=== PATIENT | female | born 1945 | race African-American/Black ===

== ENCOUNTER 2017-02-07 12:22 | Observation (INO) | END 2017-02-07 23:55 | LOC: MED/SURG 12:22 → OBS 14:58 → MED/SURG 17:02 | PROVIDERS: ADMIT Internal Medicine; ATTEND Internal Medicine | DX: R10.84 Generalized abdominal pain (principal); R53.1 Weakness | CPT/HCPCS: G0378 ==

== ENCOUNTER 2017-02-08 09:24 | Inpatient (IN) | payer OTHER, MEDICAID ==
[2017-02-08 10:28] LABS: BASOPHILS # (AUTO) 0.1 X10^3/uL (0.0-0.1); BASOPHILS % (AUTO) 0.6 % (0.2-1.0); EOSINOPHILS # (AUTO) 0.1 x10^3/uL (0.0-0.2); HEMATOCRIT 38.1 % (36.0-47.0); HEMOGLOBIN 12.5 g/dL (12.0-16.0); LYMPHOCYTES # (AUTO) 1.4 X10^3/uL (1.3-2.9); LYMPHOCYTES % (AUTO) 12.5 % (21.0-51.0); MEAN CORPUSCULAR HEMOGLOBIN 25.9 pg (27.0-34.0); MEAN CORPUSCULAR HGB CONC 32.9 g/dL (33.0-35.0); MEAN CORPUSCULAR VOLUME 78.8 fL (80.0-100.0); MONOCYTES # (AUTO) 0.7 x10^3/uL (0.3-0.8); MONOCYTES % (AUTO) 6.2 % (0.0-13.0); NEUTROPHILS # (AUTO) 8.7 x10^3/uL (2.2-4.8); NEUTROPHILS % (AUTO) 79.7 % (42.0-75.0); PLATELET COUNT 195 X10^3/uL (150.0-450.0); RED BLOOD COUNT 4.84 X10^6/uL (3.5-5.4); RED CELL DISTRIBUTION WIDTH 18.6 % (11.6-16.5); WHITE BLOOD COUNT 10.9 X10^3/uL (3.6-10.0)
[2017-02-08 10:36] LABS: ALANINE AMINOTRANSFERASE 13 Units/L (12-78); ALBUMIN 3.7 g/dL (3.4-5.0); ALKALINE PHOSPHATASE 91 Units/L (46-116); ASPARTATE AMINO TRANSFERASE 14 Units/L (15-37); BLOOD UREA NITROGEN 23 mg/dL (7-18); CALCIUM 9.6 mg/dL (8.5-10.1); CARBON DIOXIDE 27.6 mmol/L (21-32); CHLORIDE 105 mmol/L (98-107); CREATININE 1.08 mg/dL (0.55-1.02); PLATELET MORPHOLOGY COMMENT NORMAL (NORMAL); SODIUM 141 mmol/L (136-145); eGFR BLACK RACES > 60 (>60); eGFR NON BLACK RACES 53 (>60)
--- NOTE | 2017-02-08 11:29 | RAD ---
HISTORY: Weakness Study: Left shoulder: Three views Comparison: None Findings: Mild acromioclavicular joint degeneration. Very limited movement between internal and external rotati on. [id number] glenohumeral joint degeneration noted. No fracture dislocation is noted. IMPRESSION: 1. Degenerative change in left shoulder as described above with findings suggesting the possibility o f limited range of motion. 2. No acute bony abnormalities are identified. Reported By:
--- NOTE | 2017-02-08 11:30 | RAD ---
HISTORY: Generalized weakness Study: Chest AP portable Comparison: None Findings: The heart is enlarged. No congestive heart failure is noted. The aorta is ectatic. The lungs are well inflated and free of acute alveolar infiltrates. No pleural effusions are identified. The bony thora x is unremarkable. IMPRESSION: Moderate cardiomegaly without congestive heart failure Lungs clear Reported By:
--- NOTE | 2017-02-08 11:30 | CT ---
CT abdomen and pelvis without contrast Indication: Generalized weakness, abdominal pain Comparison: None Technique: CT images of the abdomen and pelvis were obtained without contrast. Automatic exposure con trol was utilized. Findings: No acute skeletal abnormality. The lung bases are essentially clear. Evaluation of the abdominal pelvic viscera is limited by lack of contrast. Previous cholecystectomy i s noted. Within noncontrast limitations, the liver, spleen, stomach, duodenum, pancreas, adrenals, an d kidneys demonstrate no significant abnormality. No significant bowel thickening or dilatation of th e lower GI tract is observed. Normal appendix. The uterus is noted. No pelvic mass is seen. The urina ry bladder and rectum are unremarkable. No free fluid or adenopathy. There is aortoiliac atherosclero sis, without aneurysm. Impression: No etiology for patient's symptoms identified. Reported By:
[2017-02-08 12:16] VITALS: BMI 27.4
[2017-02-08] MEDS: NS 1000 ML 1,000 ML IV SCH (15:32)
[2017-02-08 15:59] LABS: AMYLASE 47 Units/L (25-115); LIPASE 215 Units/L (73-393)
[2017-02-08 19:14] LABS: BILIRUBIN,URINE NEGATIVE (NEGATIVE); BLOOD/HEMOGLOBIN,URINE 2+ (NEGATIVE); GLUCOSE, URINE NEGATIVE (NEGATIVE); KETONES,URINE NEGATIVE (NEGATIVE); LEUKOCYTE ESTERASE ,URINE 1+ (NEGATIVE); NITRITES,URINE NEGATIVE (NEGATIVE); PROTEIN,URINE NEGATIVE (NEGATIVE); UROBILINOGEN,URINE NORMAL (NORMAL)
[2017-02-08 19:21] LABS: APPEARANCE,URINE CLEAR (CLEAR); BACTERIA,URINE TRACE /HPF (NEGATIVE); COLOR,URINE YELLOW (YELLOW); RBC,URINE 0-3 /HPF (NEGATIVE); SQUAMOUS EPITHELIAL CELL,UR FEW /HPF (NEGATIVE)
[2017-02-08] MEDS ORDERED: NEURONTIN CAP 300 MG PO SCH (21:00)
[2017-02-08] MEDS ORDERED: REQUIP PO SCH (22:00)
[2017-02-09 04:32] LABS: BASOPHILS % (AUTO) 0.6 % (0.2-1.0); EOSINOPHILS # (AUTO) 0.2 x10^3/uL (0.0-0.2); EOSINOPHILS % (AUTO) 1.9 % (0.9-2.9); HEMATOCRIT 35.9 % (36.0-47.0); LYMPHOCYTES # (AUTO) 1.6 X10^3/uL (1.3-2.9); LYMPHOCYTES % (AUTO) 19.5 % (21.0-51.0); MEAN CORPUSCULAR HEMOGLOBIN 26.2 pg (27.0-34.0); MEAN CORPUSCULAR HGB CONC 33.4 g/dL (33.0-35.0); MEAN CORPUSCULAR VOLUME 78.4 fL (80.0-100.0); MEAN PLATELET VOLUME 9.3 fL (7.4-11.0); MONOCYTES # (AUTO) 0.5 x10^3/uL (0.3-0.8); MONOCYTES % (AUTO) 6.4 % (0.0-13.0); NEUTROPHILS # (AUTO) 5.8 x10^3/uL (2.2-4.8); NEUTROPHILS % (AUTO) 71.6 % (42.0-75.0); PLATELET COUNT 170 X10^3/uL (150.0-450.0); RED BLOOD COUNT 4.58 X10^6/uL (3.5-5.4); RED CELL DISTRIBUTION WIDTH 17.9 % (11.6-16.5); WHITE BLOOD COUNT 8.2 X10^3/uL (3.6-10.0)
[2017-02-09 04:37] LABS: ALANINE AMINOTRANSFERASE 11 Units/L (12-78); ALBUMIN 3.5 g/dL (3.4-5.0); ALKALINE PHOSPHATASE 80 Units/L (46-116); ASPARTATE AMINO TRANSFERASE 13 Units/L (15-37); BLOOD UREA NITROGEN 22 mg/dL (7-18); CALCIUM 9.8 mg/dL (8.5-10.1); CHLORIDE 105 mmol/L (98-107); SODIUM 140 mmol/L (136-145); TOTAL PROTEIN 7.7 g/dL (6.4-8.2); eGFR BLACK RACES > 60 (>60); eGFR NON BLACK RACES 58 (>60)
[2017-02-09] MEDS ORDERED: K-RIDER 10 MEQ/NS 100 ML 10 MEQ/100 ML BAG IV PRN (05:13)
[2017-02-09] MEDS ORDERED: MAGNESIUM SULFATE 1 GM/100 mL PREMIX 1 GM/100 ML BAG IV PRN (05:13)
[2017-02-09] MEDS ORDERED: MAG-OX TAB PO PRN (05:13)
[2017-02-09] MEDS ORDERED: K-LYTE EFFERVESCENT PO PRN (05:13)
[2017-02-09] MEDS: NS 1000 ML 1,000 ML IV SCH ×2 (05:24→14:39)
[2017-02-09] MEDS ORDERED: AMBIEN PO PRN (13:46)
[2017-02-09] MEDS: COZAAR PO SCH (14:46)
[2017-02-09] MEDS: LIORESAL PO SCH ×2 (14:46→21:17)
[2017-02-09] MEDS ORDERED: PATIENT'S HOME MEDICATION (Ropinirole Hcl [Requip] 1 TAB) PO SCH (21:00)
[2017-02-09] MEDS: NEURONTIN CAP 300 MG PO SCH (21:17)
[2017-02-09] MEDS: REQUIP PO SCH (21:17)
[2017-02-09] MEDS: ALDACTONE TAB 25 MG PO SCH (21:18)
[2017-02-10] MEDS: NS 1000 ML 1,000 ML IV SCH ×2 (05:22→18:38)
[2017-02-10] MEDS: LIORESAL PO SCH ×3 (05:44→21:17)
[2017-02-10 05:50] LABS: BASOPHILS # (AUTO) 0.1 X10^3/uL (0.0-0.1); BASOPHILS % (AUTO) 0.7 % (0.2-1.0); EOSINOPHILS # (AUTO) 0.2 x10^3/uL (0.0-0.2); EOSINOPHILS % (AUTO) 1.7 % (0.9-2.9); HEMATOCRIT 34.4 % (36.0-47.0); HEMOGLOBIN 11.4 g/dL (12.0-16.0); LYMPHOCYTES % (AUTO) 20.6 % (21.0-51.0); MEAN CORPUSCULAR HEMOGLOBIN 25.8 pg (27.0-34.0); MEAN CORPUSCULAR VOLUME 78.3 fL (80.0-100.0); MEAN PLATELET VOLUME 9.7 fL (7.4-11.0); MONOCYTES # (AUTO) 0.6 x10^3/uL (0.3-0.8); MONOCYTES % (AUTO) 6.5 % (0.0-13.0); NEUTROPHILS # (AUTO) 6.9 x10^3/uL (2.2-4.8); NEUTROPHILS % (AUTO) 70.5 % (42.0-75.0); PLATELET COUNT 171 X10^3/uL (150.0-450.0); RED CELL DISTRIBUTION WIDTH 18.3 % (11.6-16.5); WHITE BLOOD COUNT 9.9 X10^3/uL (3.6-10.0)
[2017-02-10 06:19] LABS: ALANINE AMINOTRANSFERASE 11 Units/L (12-78); ALBUMIN 3.5 g/dL (3.4-5.0); ALKALINE PHOSPHATASE 79 Units/L (46-116); ASPARTATE AMINO TRANSFERASE 16 Units/L (15-37); BLOOD UREA NITROGEN 26 mg/dL (7-18); CARBON DIOXIDE 23.5 mmol/L (21-32); CHLORIDE 107 mmol/L (98-107); CREATININE 0.94 mg/dL (0.55-1.02); SODIUM 141 mmol/L (136-145); TOTAL PROTEIN 7.4 g/dL (6.4-8.2); eGFR BLACK RACES > 60 (>60); eGFR NON BLACK RACES > 60 (>60)
[2017-02-10 06:50] LABS: PLATELET MORPHOLOGY COMMENT NORMAL (NORMAL)
[2017-02-10 06:51] LABS: ANISOCYTOSIS SLIGHT; MICROCYTOSIS SLIGHT
[2017-02-10] MEDS: ALDACTONE TAB 25 MG PO SCH ×2 (08:55→21:19)
[2017-02-10] MEDS: HYDROCHLOROTHIAZIDE 12.5 MG CAP PO SCH (08:55)
[2017-02-10] MEDS: ASPIRIN PO SCH (08:55)
[2017-02-10] MEDS: NORVASC TAB 5 MG PO SCH (08:55)
[2017-02-10] MEDS: COZAAR PO SCH (08:55)
[2017-02-10] MEDS ORDERED: PATIENT'S HOME MEDICATION (Losartan Potassium [Losartan Potassium] 1 TAB) PO SCH (09:00)
[2017-02-10] MEDS: REQUIP PO SCH (21:17)
[2017-02-10] MEDS: PERCOCET TAB 5/325 MG PO PRN (21:18)
[2017-02-10] MEDS: NEURONTIN CAP 300 MG PO SCH (21:18)
[2017-02-11 05:07] LABS: BASOPHILS # (AUTO) 0.1 X10^3/uL (0.0-0.1); BASOPHILS % (AUTO) 0.6 % (0.2-1.0); EOSINOPHILS # (AUTO) 0.1 x10^3/uL (0.0-0.2); EOSINOPHILS % (AUTO) 1.6 % (0.9-2.9); HEMATOCRIT 35.3 % (36.0-47.0); HEMOGLOBIN 11.5 g/dL (12.0-16.0); LYMPHOCYTES # (AUTO) 1.5 X10^3/uL (1.3-2.9); LYMPHOCYTES % (AUTO) 16.2 % (21.0-51.0); MEAN CORPUSCULAR HEMOGLOBIN 25.6 pg (27.0-34.0); MEAN CORPUSCULAR HGB CONC 32.6 g/dL (33.0-35.0); MEAN CORPUSCULAR VOLUME 78.6 fL (80.0-100.0); MEAN PLATELET VOLUME 9.6 fL (7.4-11.0); MONOCYTES # (AUTO) 0.6 x10^3/uL (0.3-0.8); MONOCYTES % (AUTO) 6.5 % (0.0-13.0); NEUTROPHILS # (AUTO) 6.8 x10^3/uL (2.2-4.8); NEUTROPHILS % (AUTO) 75.1 % (42.0-75.0); PLATELET COUNT 161 X10^3/uL (150.0-450.0); RED BLOOD COUNT 4.49 X10^6/uL (3.5-5.4); RED CELL DISTRIBUTION WIDTH 18.2 % (11.6-16.5); WHITE BLOOD COUNT 9.1 X10^3/uL (3.6-10.0)
[2017-02-11 05:20] LABS: ALANINE AMINOTRANSFERASE 13 Units/L (12-78); ALBUMIN 3.5 g/dL (3.4-5.0); ALKALINE PHOSPHATASE 76 Units/L (46-116); ASPARTATE AMINO TRANSFERASE 11 Units/L (15-37); BLOOD UREA NITROGEN 27 mg/dL (7-18); CALCIUM 9.8 mg/dL (8.5-10.1); CARBON DIOXIDE 23.5 mmol/L (21-32); CHLORIDE 106 mmol/L (98-107); SODIUM 141 mmol/L (136-145); TOTAL PROTEIN 7.6 g/dL (6.4-8.2); eGFR BLACK RACES > 60 (>60); eGFR NON BLACK RACES 58 (>60)
[2017-02-11] MEDS: LIORESAL PO SCH ×3 (05:53→22:00)
[2017-02-11 05:55] LABS: MICROCYTOSIS SLIGHT; PLATELET MORPHOLOGY COMMENT NORMAL (NORMAL)
[2017-02-11] MEDS: ASPIRIN PO SCH (09:06)
[2017-02-11] MEDS: COZAAR PO SCH (09:06)
[2017-02-11] MEDS: NORVASC TAB 5 MG PO SCH (09:07)
[2017-02-11] MEDS: ALDACTONE TAB 25 MG PO SCH ×2 (09:07→20:47)
[2017-02-11] MEDS: HYDROCHLOROTHIAZIDE 12.5 MG CAP PO SCH (09:07)
[2017-02-11] MEDS: NS 1000 ML 1,000 ML IV SCH (10:54)
[2017-02-11] MEDS: COLACE CAP 100 MG PO SCH ×2 (17:36→20:46)
[2017-02-11] MEDS: MILK OF MAGNESIA PO SCH ×2 (17:36→20:46)
[2017-02-11] MEDS: REQUIP PO SCH (20:46)
[2017-02-11] MEDS: NEURONTIN CAP 300 MG PO SCH (20:46)
--- NOTE | 2017-02-11 21:11 | PCM.PROG ---
Progress Note - Progress Note for Day of Date: 02/10/17 - Subjective Subjective: MS. FITZPATRICK WAS ADMITTED FOR COMPLAINTS OF ABDOMINAL PAIN AND GENERALIZED WEAKNESS. PATIENT HAS A HISTORY OF A LEFT BELOW THE KNEE AMPUTATION. FAMILY REPORTS THAT PATIENTS MOBILITY HAS GRADUALLY DECLINED AND ARE CONCERNED THAT PATIENT MAY NEED EXTENSIVE PHYSICAL THERAPY BEFORE THEY CAN TAKE HER BACK HOME TO CARE FOR HER. AN ABDOMINAL WORKUP WAS NEGATIVE FOR ACUTE FINDINGS. THIS MORNING, PATIENT IS AWAKE AND ALERT, BUT IS CONFUSED ABOUT SITUATION. SHE IS NOTED WITH LEFT LIMB PAIN. ON EXAMINATION, LUNGS ARE CLEAR TO AUSCULTATION. ABDOMEN IS ROUND, SOFT, AND NON-TENDER WITH NORMAL BOWEL SOUNDS NOTED IN ALL QUADRANTS. HER VITAL SIGNS THIS MORNING ARE 98.4-67-18-98%-186/88. ABNORMAL LAB VALUES INCLUDE THE FOLLOWING: HGB 11.4, HCT 34.4, BUN 26, A/G RATIO 0.9. URINE CULTURE REPORTS NO GROWTH AT DAY 1. PRELIMINARY BLOOD CULTURES REPORT NO GROWTH. CASE MANAGEMENT HAS CONTACTED [facility] FOR POSSIBLE REHAB PLACEMENT AFTER DISCHARGE. WE ARE AWAITING WORD ON THIS. TODAY, WE WILL CONTINUE WITH CURRENT PLAN OF CARE AND PHYSICAL THERAPY. WE PLAN TO FOLLOW UP WITH AM LABS AND CONTINUE TO MONITOR PATIENT. - Past Medical Family Social History Past Med/Fam/Surg Hx: No changes since H&P Allergies: Allergies No Known Drug Allergies Allergy (Verified 02/08/17 11:13) - Review of Systems ROS: No change since H&P - Vital Signs and I&O's Vital Signs: Temperature 98.1 F Pulse Rate [Right Brachial] 57 Respiratory Rate 18 Blood Pressure [Right Arm] 150/82 O2 Sat by Pulse Oximetry 96 Intake and Output: Intake & Output 02/09/17 02/10/17 02/11/17 02/12/17 11:59 11:59 11:59 11:59 Intake Total 580 1470 1050 580 Output Total 1000 1 Balance -420 1470 1049 580 - Physical Exam Oriented: Person Eyes: Normal Ear: Normal Nose: Normal Throat: Normal Respiratory: Normal Cardiovascular: Normal : Normal Auscultation: Bowel Sounds: Normal Palpation: Normal Tenderness: Normal Skin: Normal Musculoskeletal: Left (LEFT LIMB PAIN/TENDERNESS), Tender (LEFT LIMB PAIN/ TENDERNESS) Psychiatric: Normal Mood Description: Calm Affect: Normal Speech Pattern: Clear - Laboratory and Diagnostics Result Diagrams: 02/11/17 03:40 02/11/17 03:40 Labs: 02/08/17 13:53 Blood Blood Culture - Preliminary 02/08/17 13:42 Blood Blood Culture - Preliminary 02/08/17 18:33 Urine,Clean Catch Urine Culture - Final Laboratory WBC 9.1 X10^3/uL (3.6-10.0) 02/11/17 03:40 RBC 4.49 X10^6/uL (3.5-5.4) 02/11/17 03:40 Hgb 11.5 g/dL (12.0-16.0) L 02/11/17 03:40 Hct 35.3 % (36.0-47.0) L 02/11/17 03:40 MCV 78.6 fL (80.0-100.0) L 02/11/17 03:40 MCH 25.6 pg (27.0-34.0) L 02/11/17 03:40 MCHC 32.6 g/dL (33.0-35.0) L 02/11/17 03:40 RDW 18.2 % (11.6-16.5) H 02/11/17 03:40 Plt Count 161 X10^3/uL (150.0-450.0) 02/11/17 03:40 Plt Count Comment Adequate (ADEQUATE) 02/11/17 03:40 MPV 9.6 fL (7.4-11.0) 02/11/17 03:40 Neut % 75.1 % (42.0-75.0) H 02/11/17 03:40 Lymph % 16.2 % (21.0-51.0) L 02/11/17 03:40 [place] % 6.5 % (0.0-13.0) 02/11/17 03:40 Eos % 1.6 % (0.9-2.9) 02/11/17 03:40 Baso % 0.6 % (0.2-1.0) 02/11/17 03:40 Neut # 6.8 x10^3/uL (2.2-4.8) H 02/11/17 03:40 Lymph # 1.5 X10^3/uL (1.3-2.9) 02/11/17 03:40 [place] # 0.6 x10^3/uL (0.3-0.8) 02/11/17 03:40 Eos # 0.1 x10^3/uL (0.0-0.2) 02/11/17 03:40 Baso # 0.1 X10^3/uL (0.0-0.1) 02/11/17 03:40 Absolute Nucleated RBC 0.0 /100WBC 02/11/17 03:40 Plt Morphology Comment Normal (NORMAL) 02/11/17 03:40 RBC Morphology Abnormal (NORMAL) A 02/11/17 03:40 Anisocytosis Slight A 02/10/17 04:05 Microcytosis Slight A 02/11/17 03:40 Sodium 141 mmol/L (136-145) 02/11/17 03:40 Corrected Sodium TNP 02/11/17 03:40 Potassium 3.5 mmol/L (3.5-5.1) 02/11/17 03:40 Chloride 106 mmol/L (98-107) 02/11/17 03:40 Carbon Dioxide 23.5 mmol/L (21-32) 02/11/17 03:40 BUN 27 mg/dL (7-18) H 02/11/17 03:40 Creatinine 1.00 mg/dL (0.55-1.02) 02/11/17 03:40 Est GFR (MDRD) Af Amer > 60 (>60) 02/11/17 03:40 Est GFR (MDRD) Non-Af 58 (>60) L 02/11/17 03:40 Glucose 93 mg/dL (65-99) 02/11/17 03:40 Calcium 9.8 mg/dL (8.5-10.1) 02/11/17 03:40 Corrected Calcium TNP 02/11/17 03:40 Magnesium 1.7 mg/dL (1.7-2.9) 02/09/17 03:25 Total Bilirubin 0.30 mg/dL (0.2-1.0) 02/11/17 03:40 AST 11 Units/L (15-37) L 02/11/17 03:40 ALT 13 Units/L (12-78) 02/11/17 03:40 Alkaline Phosphatase 76 Units/L (46-116) 02/11/17 03:40 Total Protein 7.6 g/dL (6.4-8.2) 02/11/17 03:40 Albumin 3.5 g/dL (3.4-5.0) 02/11/17 03:40 Globulin 4.1 g/dL (2.5-4.5) 02/11/17 03:40 Albumin/Globulin Ratio 0.9 Ratio (1.1-2.1) L 02/11/17 03:40 Amylase 47 Units/L (25-115) 02/08/17 13:42 Lipase 215 Units/L (73-393) 02/08/17 13:42 Specimen Type Clean catch urine 02/08/17 18:33 Urine Color Yellow (YELLOW) 02/08/17 18:33 Urine Appearance Clear (CLEAR) 02/08/17 18:33 Urine pH 7.0 (5.0 - 8.0) 02/08/17 18:33 Ur Specific [place] 1.010 (1.000-1.030) 02/08/17 18:33 Urine Protein Negative (NEGATIVE) 02/08/17 18:33 Urine Glucose (UA) Negative (NEGATIVE) 02/08/17 18:33 Urine Ketones Negative (NEGATIVE) 02/08/17 18:33 Urine Occult Blood 2+ (NEGATIVE) 02/08/17 18:33 Urine Nitrite Negative (NEGATIVE) 02/08/17 18:33 Urine Bilirubin Negative (NEGATIVE) 02/08/17 18:33 Urine Urobilinogen Normal (NORMAL) 02/08/17 18:33 Ur Leukocyte Esterase 1+ (NEGATIVE) 02/08/17 18:33 Urine RBC 0-3 /HPF (NEGATIVE) 02/08/17 18:33 Urine WBC 2-6 /HPF (NEGATIVE) 02/08/17 18:33 Ur Squamous Epith Cells Few /HPF (NEGATIVE) 02/08/17 18:33 Urine Bacteria Trace /HPF (NEGATIVE) 02/08/17 18:33 Ur Culture Indicated? No/not indicated 02/08/17 18:33 - Plan (1) Decreased mobility Status: Acute Plan: REHAB PLACEMENT AT [facility], PHYSICAL THERAPY, CONTINUE TO MONITOR (2) Abdominal pain Status: Acute Qualifiers: Abdominal location: generalized Qualified Code(s): R10.84 - Generalized abdominal pain Plan: PERCOCET 5/325 MG PO Q8H PRN PAIN, CONTINUE TO MONITOR
--- NOTE | 2017-02-11 21:14 | PCM.PROG ---
Progress Note - Progress Note for Day of Date: 02/11/17 - Subjective Subjective: MS. FITZPATRICK WAS ADMITTED FOR COMPLAINTS OF ABDOMINAL PAIN, GENERALIZED WEAKNESS, AND DECREASED MOBILITY. AN ABDOMINAL WORKUP WAS NEGATIVE FOR ACUTE FINDINGS. THIS MORNING, PATIENT IS AWAKE AND ALERT AND CONTINUES WITH CONFUSION. SHE CONTINUES WITH LEFT LIMB PAIN. ON EXAMINATION, LUNGS ARE CLEAR TO AUSCULTATION. ABDOMEN IS ROUND, SOFT, AND NON-TENDER WITH NORMAL BOWEL SOUNDS NOTED IN ALL QUADRANTS. HER VITAL SIGNS THIS MORNING ARE 97.7-60-18-100%- 170/82. ABNORMAL LAB VALUES INCLUDE THE FOLLOWING: HGB 11.5, HCT 35.3, BUN 27, AST 11, A/G RATIO 0.9. URINE CULTURE REPORTS NO GROWTH AT DAY 2. PRELIMINARY BLOOD CULTURES REPORT NO GROWTH. WE ARE AWAITING WORD ON BED AVAILABILITY FOR REHAB PLACEMENT AT [facility]. TODAY, WE WILL CONTINUE WITH CURRENT PLAN OF CARE AND PHYSICAL THERAPY. WE PLAN TO FOLLOW UP WITH AM LABS AND CONTINUE TO MONITOR PATIENT. - Past Medical Family Social History Past Med/Fam/Surg Hx: No changes since H&P Allergies: Allergies No Known Drug Allergies Allergy (Verified 02/08/17 11:13) - Review of Systems ROS: No change since H&P - Vital Signs and I&O's Vital Signs: Temperature 98.1 F Pulse Rate [Right Brachial] 57 Respiratory Rate 18 Blood Pressure [Right Arm] 150/82 O2 Sat by Pulse Oximetry 96 Intake and Output: Intake & Output 02/09/17 02/10/17 02/11/17 02/12/17 11:59 11:59 11:59 11:59 Intake Total 580 1470 1050 580 Output Total 1000 1 Balance -420 1470 1049 580 - Physical Exam Oriented: Person Eyes: Normal Ear: Normal Nose: Normal Throat: Normal Respiratory: Normal Cardiovascular: Normal : Normal Auscultation: Bowel Sounds: Normal Palpation: Normal Tenderness: Normal Skin: Normal Musculoskeletal: Left (LEFT LIMB PAIN/TENDERNESS), Tender (LEFT LIMB PAIN/ TENDERNESS) Psychiatric: Normal Mood Description: Calm Affect: Normal Speech Pattern: Clear - Laboratory and Diagnostics Result Diagrams: 02/11/17 03:40 02/11/17 03:40 Labs: 02/08/17 13:53 Blood Blood Culture - Preliminary 02/08/17 13:42 Blood Blood Culture - Preliminary 02/08/17 18:33 Urine,Clean Catch Urine Culture - Final Laboratory WBC 9.1 X10^3/uL (3.6-10.0) 02/11/17 03:40 RBC 4.49 X10^6/uL (3.5-5.4) 02/11/17 03:40 Hgb 11.5 g/dL (12.0-16.0) L 02/11/17 03:40 Hct 35.3 % (36.0-47.0) L 02/11/17 03:40 MCV 78.6 fL (80.0-100.0) L 02/11/17 03:40 MCH 25.6 pg (27.0-34.0) L 02/11/17 03:40 MCHC 32.6 g/dL (33.0-35.0) L 02/11/17 03:40 RDW 18.2 % (11.6-16.5) H 02/11/17 03:40 Plt Count 161 X10^3/uL (150.0-450.0) 02/11/17 03:40 Plt Count Comment Adequate (ADEQUATE) 02/11/17 03:40 MPV 9.6 fL (7.4-11.0) 02/11/17 03:40 Neut % 75.1 % (42.0-75.0) H 02/11/17 03:40 Lymph % 16.2 % (21.0-51.0) L 02/11/17 03:40 [place] % 6.5 % (0.0-13.0) 02/11/17 03:40 Eos % 1.6 % (0.9-2.9) 02/11/17 03:40 Baso % 0.6 % (0.2-1.0) 02/11/17 03:40 Neut # 6.8 x10^3/uL (2.2-4.8) H 02/11/17 03:40 Lymph # 1.5 X10^3/uL (1.3-2.9) 02/11/17 03:40 [place] # 0.6 x10^3/uL (0.3-0.8) 02/11/17 03:40 Eos # 0.1 x10^3/uL (0.0-0.2) 02/11/17 03:40 Baso # 0.1 X10^3/uL (0.0-0.1) 02/11/17 03:40 Absolute Nucleated RBC 0.0 /100WBC 02/11/17 03:40 Plt Morphology Comment Normal (NORMAL) 02/11/17 03:40 RBC Morphology Abnormal (NORMAL) A 02/11/17 03:40 Anisocytosis Slight A 02/10/17 04:05 Microcytosis Slight A 02/11/17 03:40 Sodium 141 mmol/L (136-145) 02/11/17 03:40 Corrected Sodium TNP 02/11/17 03:40 Potassium 3.5 mmol/L (3.5-5.1) 02/11/17 03:40 Chloride 106 mmol/L (98-107) 02/11/17 03:40 Carbon Dioxide 23.5 mmol/L (21-32) 02/11/17 03:40 BUN 27 mg/dL (7-18) H 02/11/17 03:40 Creatinine 1.00 mg/dL (0.55-1.02) 02/11/17 03:40 Est GFR (MDRD) Af Amer > 60 (>60) 02/11/17 03:40 Est GFR (MDRD) Non-Af 58 (>60) L 02/11/17 03:40 Glucose 93 mg/dL (65-99) 02/11/17 03:40 Calcium 9.8 mg/dL (8.5-10.1) 02/11/17 03:40 Corrected Calcium TNP 02/11/17 03:40 Magnesium 1.7 mg/dL (1.7-2.9) 02/09/17 03:25 Total Bilirubin 0.30 mg/dL (0.2-1.0) 02/11/17 03:40 AST 11 Units/L (15-37) L 02/11/17 03:40 ALT 13 Units/L (12-78) 02/11/17 03:40 Alkaline Phosphatase 76 Units/L (46-116) 02/11/17 03:40 Total Protein 7.6 g/dL (6.4-8.2) 02/11/17 03:40 Albumin 3.5 g/dL (3.4-5.0) 02/11/17 03:40 Globulin 4.1 g/dL (2.5-4.5) 02/11/17 03:40 Albumin/Globulin Ratio 0.9 Ratio (1.1-2.1) L 02/11/17 03:40 Amylase 47 Units/L (25-115) 02/08/17 13:42 Lipase 215 Units/L (73-393) 02/08/17 13:42 Specimen Type Clean catch urine 02/08/17 18:33 Urine Color Yellow (YELLOW) 02/08/17 18:33 Urine Appearance Clear (CLEAR) 02/08/17 18:33 Urine pH 7.0 (5.0 - 8.0) 02/08/17 18:33 Ur Specific [place] 1.010 (1.000-1.030) 02/08/17 18:33 Urine Protein Negative (NEGATIVE) 02/08/17 18:33 Urine Glucose (UA) Negative (NEGATIVE) 02/08/17 18:33 Urine Ketones Negative (NEGATIVE) 02/08/17 18:33 Urine Occult Blood 2+ (NEGATIVE) 02/08/17 18:33 Urine Nitrite Negative (NEGATIVE) 02/08/17 18:33 Urine Bilirubin Negative (NEGATIVE) 02/08/17 18:33 Urine Urobilinogen Normal (NORMAL) 02/08/17 18:33 Ur Leukocyte Esterase 1+ (NEGATIVE) 02/08/17 18:33 Urine RBC 0-3 /HPF (NEGATIVE) 02/08/17 18:33 Urine WBC 2-6 /HPF (NEGATIVE) 02/08/17 18:33 Ur Squamous Epith Cells Few /HPF (NEGATIVE) 02/08/17 18:33 Urine Bacteria Trace /HPF (NEGATIVE) 02/08/17 18:33 Ur Culture Indicated? No/not indicated 02/08/17 18:33 - Plan (1) Decreased mobility Status: Acute Plan: REHAB PLACEMENT AT [facility], PHYSICAL THERAPY, CONTINUE TO MONITOR (2) Abdominal pain Status: Acute Qualifiers: Abdominal location: generalized Qualified Code(s): R10.84 - Generalized abdominal pain Plan: PERCOCET 5/325 MG PO Q8H PRN PAIN, CONTINUE TO MONITOR
[2017-02-12] MEDS: NS 1000 ML 1,000 ML IV SCH ×2 (00:48→13:57)
[2017-02-12] MEDS: LIORESAL PO SCH ×2 (05:05→14:09)
[2017-02-12 05:07] LABS: BASOPHILS # (AUTO) 0.1 X10^3/uL (0.0-0.1); BASOPHILS % (AUTO) 0.5 % (0.2-1.0); EOSINOPHILS # (AUTO) 0.1 x10^3/uL (0.0-0.2); EOSINOPHILS % (AUTO) 0.5 % (0.9-2.9); HEMATOCRIT 36.9 % (36.0-47.0); HEMOGLOBIN 12.3 g/dL (12.0-16.0); LYMPHOCYTES # (AUTO) 1.4 X10^3/uL (1.3-2.9); LYMPHOCYTES % (AUTO) 12.1 % (21.0-51.0); MEAN CORPUSCULAR HEMOGLOBIN 25.8 pg (27.0-34.0); MEAN CORPUSCULAR HGB CONC 33.2 g/dL (33.0-35.0); MEAN CORPUSCULAR VOLUME 77.8 fL (80.0-100.0); MEAN PLATELET VOLUME 9.4 fL (7.4-11.0); MONOCYTES # (AUTO) 0.6 x10^3/uL (0.3-0.8); MONOCYTES % (AUTO) 5.6 % (0.0-13.0); NEUTROPHILS # (AUTO) 9.1 x10^3/uL (2.2-4.8); NEUTROPHILS % (AUTO) 81.3 % (42.0-75.0); PLATELET COUNT 200 X10^3/uL (150.0-450.0); RED BLOOD COUNT 4.75 X10^6/uL (3.5-5.4); WHITE BLOOD COUNT 11.2 X10^3/uL (3.6-10.0)
[2017-02-12 05:21] LABS: ALANINE AMINOTRANSFERASE 12 Units/L (12-78); ALBUMIN 3.9 g/dL (3.4-5.0); ALKALINE PHOSPHATASE 85 Units/L (46-116); ASPARTATE AMINO TRANSFERASE 14 Units/L (15-37); BLOOD UREA NITROGEN 24 mg/dL (7-18); CALCIUM 10.2 mg/dL (8.5-10.1); CARBON DIOXIDE 26.7 mmol/L (21-32); CHLORIDE 102 mmol/L (98-107); CREATININE 0.99 mg/dL (0.55-1.02); PLATELET MORPHOLOGY COMMENT NORMAL (NORMAL); SODIUM 139 mmol/L (136-145); TOTAL PROTEIN 8.5 g/dL (6.4-8.2); eGFR BLACK RACES > 60 (>60); eGFR NON BLACK RACES 59 (>60)
--- NOTE | 2017-02-12 08:31 | DR.H&P ---
H&P - History & Physical for Day of: H&P Date: 02/08/17 - Chief Complaint Chief Complaint: abdominal pain, weakness - Allergies Allergies/Adverse Reactions: Allergies Allergy/AdvReac Type Severity Reaction Status Date / Time No Known Drug Allergies Allergy Verified 02/08/17 11:13 - History of Present Illness History of Present Illness: 71 BF DIRECT ADMIT TO [facility] FOR FURTHER EVALUATION OF ABDOMINAL PAIN AND WEAKNESS, ADULT FAILURE TO THRIVE. PT HAS HX OF LEFT BKA. LIMITED MOBILITY. PT CO ABDOMINAL PAIN AND FAMILY REPORTS INCREASED CONFUSION. PLAN TO ADMIT FOR CT ABD/PELVIS AND ADMISSION LABS. DISCUSSED ADMIT TO REHAB THERAPY FOR PT AFTER MEDICALLY STABLE. PLAN TO RESUME HOME MEDS - Past Medical History Past Medical History: Depression, GERD, Hypertension - Past Surgical History Surgical History: Cholecystectomy, Ortho Surgery - Social History Does patient currently use any type of tobacco product: No Have you used tobacco products in the last 12 months: No Type of Tobacco Use: None Does any household member use tobacco: No Alcohol Use: None Drug Use: None - Medications Home Medications: Amlodipine Besylate [NORVASC 5 MG *] 1 tab PO DAILY 02/08/17 [History Confirmed 02/08/17] Aspirin [ASPIRIN 325 MG *] 1 tab PO DAILY 02/08/17 [History Confirmed 02/08/17] Baclofen 1 tab PO TID 02/08/17 [History Confirmed 02/08/17] Gabapentin 1 cap PO HS 02/08/17 [History Confirmed 02/08/17] Hydrochlorothiazide [HYDROCHLOROTHIAZIDE 12.5 MG CAP *] 12.5 mg PO DAILY [History Confirmed 02/08/17] Linaclotide [Linzess] 1 cap PO DAILYAC PRN 02/08/17 [History Confirmed 02/08/17] Losartan Potassium 1 tab PO DAILY 02/08/17 [History Confirmed 02/08/17] Melatonin 3 mg PO HS PRN 02/08/17 [History Confirmed 02/08/17] Oxycodone HCl/Acetaminophen [Oxycodone-Acetaminophen 5-325] 1 tab PO .Q8HR PRN 02/08/17 [History Confirmed 02/08/17] Ropinirole HCl [Requip] 1 tab PO HS 02/08/17 [History Confirmed 02/08/17] Spironolactone 1 tab PO BID 02/08/17 [History Confirmed 02/08/17] Zolpidem Tartrate [AMBIEN 5 MG *] 1 tab PO HS PRN 02/08/17 [History Confirmed ] - Review of Systems Constitutional: Weakness Eyes: No Symptoms Reported ENT: No Symptoms Reported Respiratory: No Symptoms Reported Cardiovascular: No Symptoms Reported Gastrointestinal: No Symptoms Reported Genitourinary: No Symptoms Reported Musculoskeletal: Leg Pain Skin: No Symptoms Reported Neurological: Weakness, Confusion - Physical Exam Vital Signs: Temperature 97.9 F Pulse Rate [Right Brachial] 65 Respiratory Rate 18 Blood Pressure [Right Arm] 171/81 O2 Sat by Pulse Oximetry 98 Oriented: Person Eyes: Normal Ear: Normal Nose: Normal Throat: Normal Respiratory: RLL Diminished, LLL Diminished Cardiovascular: Normal : Normal Auscultation: Bowel Sounds: Normal Palpation: Normal Skin: Decreased [place] Musculoskeletal: Deformity (LEFT BKA) Psychiatric: Depression Mood Description: Calm Speech Pattern: Clear - Assessment/Plan (1) Abdominal pain Qualifiers: Abdominal location: generalized Qualified Code(s): R10.84 - Generalized abdominal pain Status: Acute Plan: ADMIT TO [facility] FOR ABDOMINAL PAIN AND WEAKNESS. PLAN TO OBTAIN ADMISSION LABS. URINE CULTURE, CT ABD PELVIS. RESUME HOME MEDS, REPEAT AM LABS. PAIN CONTROL. PT CONSULT (2) Hypertension Status: Acute (3) Decreased mobility Status: Acute (4) Weakness generalized Status: Acute
[2017-02-12] MEDS: COZAAR PO SCH (09:03)
[2017-02-12] MEDS: ALDACTONE TAB 25 MG PO SCH ×2 (09:03→20:41)
[2017-02-12] MEDS: NORVASC TAB 5 MG PO SCH (09:03)
[2017-02-12] MEDS: ASPIRIN PO SCH (09:03)
[2017-02-12] MEDS: HYDROCHLOROTHIAZIDE 12.5 MG CAP PO SCH (09:04)
--- NOTE | 2017-02-12 12:46 | CT ---
Indication: CVA Exam: CT head without contrast Technique: Routine transaxial images were obtained through the brain without contrast. Comparison: None. Findings: The ventricles are mildly enlarged and there is diffuse mild prominence of the cortical sul ci. There is extensive periventricular low density bilaterally. No intracranial hemorrhage or edema i s seen. There is no extra-axial fluid collection or mass. There is a small old lacunar infarct along the right basal ganglia. The bones are intact. Impression: Mild atrophy and extensive chronic microischemic disease throughout the deep white matter with no acu te intracranial abnormality seen. Reported By:
--- NOTE | 2017-02-12 13:35 | PCM.PROG ---
Progress Note - Progress Note for Day of Date: 02/12/17 - Subjective Subjective: MS. FITZPATRICK WAS ADMITTED FOR COMPLAINTS OF ABDOMINAL PAIN, GENERALIZED WEAKNESS, AND DECREASED MOBILITY. AN ABDOMINAL WORKUP WAS NEGATIVE FOR ACUTE FINDINGS. THIS MORNING, PATIENT IS AWAKE AND ALERT AND CONTINUES WITH CONFUSION, CT HEAD ORDERED THIS AM. SHE CONTINUES WITH LEFT LIMB PAIN. ON EXAMINATION, LUNGS ARE CLEAR TO AUSCULTATION. ABDOMEN IS ROUND, SOFT, AND NON- TENDER WITH NORMAL BOWEL SOUNDS NOTED IN ALL QUADRANTS. WE ARE AWAITING WORD ON BED AVAILABILITY FOR REHAB PLACEMENT AT [facility]. TODAY, WE WILL CONTINUE WITH CURRENT PLAN OF CARE AND PHYSICAL THERAPY. WE PLAN TO FOLLOW UP WITH AM LABS AND CONTINUE TO MONITOR PATIENT. - Past Medical Family Social History Past Med/Fam/Surg Hx: No changes since H&P Allergies: Allergies No Known Drug Allergies Allergy (Verified 02/08/17 11:13) - Review of Systems ROS: No change since H&P - Vital Signs and I&O's Vital Signs: Temperature 98.8 F Pulse Rate [Right Brachial] 60 Respiratory Rate 18 Blood Pressure [Right Arm] 146/59 O2 Sat by Pulse Oximetry 60 Intake and Output: Intake & Output 02/10/17 02/11/17 02/12/17 02/13/17 11:59 11:59 11:59 11:59 Intake Total 1470 1050 920 Output Total 1 Balance 1470 1049 920 - Physical Exam Oriented: Person Eyes: Normal Ear: Normal Nose: Normal Throat: Normal Respiratory: Diminished Cardiovascular: Normal : Normal Auscultation: Bowel Sounds: Normal Tenderness: Normal Skin: Decreased [place] Musculoskeletal: Deformity (LEFT BKA) Psychiatric: Depression Mood Description: Calm Affect: Normal Speech Pattern: Clear - Laboratory and Diagnostics Result Diagrams: 02/12/17 04:00 02/12/17 04:00 Labs: 02/08/17 13:53 Blood Blood Culture - Preliminary 02/08/17 13:42 Blood Blood Culture - Preliminary 02/08/17 18:33 Urine,Clean Catch Urine Culture - Final Laboratory WBC 11.2 X10^3/uL (3.6-10.0) H 02/12/17 04:00 RBC 4.75 X10^6/uL (3.5-5.4) 02/12/17 04:00 Hgb 12.3 g/dL (12.0-16.0) 02/12/17 04:00 Hct 36.9 % (36.0-47.0) 02/12/17 04:00 MCV 77.8 fL (80.0-100.0) L 02/12/17 04:00 MCH 25.8 pg (27.0-34.0) L 02/12/17 04:00 MCHC 33.2 g/dL (33.0-35.0) 02/12/17 04:00 RDW 18.0 % (11.6-16.5) H 02/12/17 04:00 Plt Count 200 X10^3/uL (150.0-450.0) 02/12/17 04:00 Plt Count Comment Adequate (ADEQUATE) 02/12/17 04:00 MPV 9.4 fL (7.4-11.0) 02/12/17 04:00 Neut % 81.3 % (42.0-75.0) H 02/12/17 04:00 Lymph % 12.1 % (21.0-51.0) L 02/12/17 04:00 [place] % 5.6 % (0.0-13.0) 02/12/17 04:00 Eos % 0.5 % (0.9-2.9) L 02/12/17 04:00 Baso % 0.5 % (0.2-1.0) 02/12/17 04:00 Neut # 9.1 x10^3/uL (2.2-4.8) H 02/12/17 04:00 Lymph # 1.4 X10^3/uL (1.3-2.9) 02/12/17 04:00 [place] # 0.6 x10^3/uL (0.3-0.8) 02/12/17 04:00 Eos # 0.1 x10^3/uL (0.0-0.2) 02/12/17 04:00 Baso # 0.1 X10^3/uL (0.0-0.1) 02/12/17 04:00 Absolute Nucleated RBC 0.0 /100WBC 02/12/17 04:00 Plt Morphology Comment Normal (NORMAL) 02/12/17 04:00 RBC Morphology Normal (NORMAL) 02/12/17 04:00 Anisocytosis Slight A 02/10/17 04:05 Microcytosis Slight A 02/11/17 03:40 Sodium 139 mmol/L (136-145) 02/12/17 04:00 Corrected Sodium TNP 02/12/17 04:00 Potassium 4.0 mmol/L (3.5-5.1) 02/12/17 04:00 Chloride 102 mmol/L (98-107) 02/12/17 04:00 Carbon Dioxide 26.7 mmol/L (21-32) 02/12/17 04:00 BUN 24 mg/dL (7-18) H 02/12/17 04:00 Creatinine 0.99 mg/dL (0.55-1.02) 02/12/17 04:00 Est GFR (MDRD) Af Amer > 60 (>60) 02/12/17 04:00 Est GFR (MDRD) Non-Af 59 (>60) 02/12/17 04:00 Glucose 93 mg/dL (65-99) 02/12/17 04:00 Calcium 10.2 mg/dL (8.5-10.1) H 02/12/17 04:00 Corrected Calcium TNP 02/12/17 04:00 Magnesium 1.7 mg/dL (1.7-2.9) 02/09/17 03:25 Total Bilirubin 0.40 mg/dL (0.2-1.0) 02/12/17 04:00 AST 14 Units/L (15-37) L 02/12/17 04:00 ALT 12 Units/L (12-78) 02/12/17 04:00 Alkaline Phosphatase 85 Units/L (46-116) 02/12/17 04:00 Total Protein 8.5 g/dL (6.4-8.2) H 02/12/17 04:00 Albumin 3.9 g/dL (3.4-5.0) 02/12/17 04:00 Globulin 4.6 g/dL (2.5-4.5) H 02/12/17 04:00 Albumin/Globulin Ratio 0.8 Ratio (1.1-2.1) L 02/12/17 04:00 Amylase 47 Units/L (25-115) 02/08/17 13:42 Lipase 215 Units/L (73-393) 02/08/17 13:42 Specimen Type Clean catch urine 02/08/17 18:33 Urine Color Yellow (YELLOW) 02/08/17 18:33 Urine Appearance Clear (CLEAR) 02/08/17 18:33 Urine pH 7.0 (5.0 - 8.0) 02/08/17 18:33 Ur Specific [place] 1.010 (1.000-1.030) 02/08/17 18:33 Urine Protein Negative (NEGATIVE) 02/08/17 18:33 Urine Glucose (UA) Negative (NEGATIVE) 02/08/17 18:33 Urine Ketones Negative (NEGATIVE) 02/08/17 18:33 Urine Occult Blood 2+ (NEGATIVE) 02/08/17 18:33 Urine Nitrite Negative (NEGATIVE) 02/08/17 18:33 Urine Bilirubin Negative (NEGATIVE) 02/08/17 18:33 Urine Urobilinogen Normal (NORMAL) 02/08/17 18:33 Ur Leukocyte Esterase 1+ (NEGATIVE) 02/08/17 18:33 Urine RBC 0-3 /HPF (NEGATIVE) 02/08/17 18:33 Urine WBC 2-6 /HPF (NEGATIVE) 02/08/17 18:33 Ur Squamous Epith Cells Few /HPF (NEGATIVE) 02/08/17 18:33 Urine Bacteria Trace /HPF (NEGATIVE) 02/08/17 18:33 Ur Culture Indicated? No/not indicated 02/08/17 18:33 - Plan (1) Abdominal pain Status: Acute Qualifiers: Abdominal location: generalized Qualified Code(s): R10.84 - Generalized abdominal pain Plan: ABDOMINAL WORK UP NEGATIVE FOR ACUTE FINDINGS. PRN PAIN AND NAUSEA MEDICATION. PPI THERAPY (2) Hypertension Status: Acute (3) Decreased mobility Status: Acute Plan: REHAB PLACEMENT AT [facility], PHYSICAL THERAPY, CONTINUE TO MONITOR (4) Weakness generalized Status: Acute (5) Confusion Status: Acute Plan: PROGRESSIVE WITHOUT FOCAL DEFICIT, OBTAIN CT HEAD. CONTINUE BP CONTROL, MONITOR
[2017-02-12] MEDS ORDERED: PROTONIX INJ 40 MG VIAL IVP SCH (14:00)
[2017-02-12] MEDS: PERCOCET TAB 5/325 MG PO PRN (18:31)
[2017-02-12] MEDS: NEURONTIN CAP 300 MG PO SCH (20:41)
[2017-02-12] MEDS: REQUIP PO SCH (20:41)
[2017-02-12] MEDS: COLACE CAP 100 MG PO SCH (20:42)
[2017-02-12] MEDS: MILK OF MAGNESIA PO SCH (20:44)
[2017-02-12 22:18] LABS: FREE T4 (FREE THYROXINE) 0.98 ng/dL (0.76-1.46); MAGNESIUM 2.5 mg/dL (1.7-2.9); TSH (3RD GENERATION) 1.334 uIU/mL (0.358-3.74)
[2017-02-13 05:49] LABS: ALANINE AMINOTRANSFERASE 15 Units/L (12-78); ALBUMIN 3.8 g/dL (3.4-5.0); ALKALINE PHOSPHATASE 83 Units/L (46-116); ASPARTATE AMINO TRANSFERASE 14 Units/L (15-37); BLOOD UREA NITROGEN 28 mg/dL (7-18); CALCIUM 10.1 mg/dL (8.5-10.1); CARBON DIOXIDE 25.4 mmol/L (21-32); CREATININE 1.14 mg/dL (0.55-1.02); TOTAL PROTEIN 8.4 g/dL (6.4-8.2); eGFR BLACK RACES > 60 (>60); eGFR NON BLACK RACES 50 (>60)
[2017-02-13] MEDS: NS 1000 ML 1,000 ML IV SCH (05:52)
[2017-02-13 05:53] LABS: CHLORIDE 103 mmol/L (98-107); SODIUM 140 mmol/L (136-145)
[2017-02-13 06:21] LABS: BASOPHILS % (AUTO) 0.6 % (0.2-1.0); EOSINOPHILS # (AUTO) 0.1 x10^3/uL (0.0-0.2); EOSINOPHILS % (AUTO) 0.9 % (0.9-2.9); HEMATOCRIT 37.4 % (36.0-47.0); HEMOGLOBIN 12.5 g/dL (12.0-16.0); LYMPHOCYTES # (AUTO) 1.9 X10^3/uL (1.3-2.9); LYMPHOCYTES % (AUTO) 21.9 % (21.0-51.0); MEAN CORPUSCULAR HEMOGLOBIN 26.2 pg (27.0-34.0); MEAN CORPUSCULAR HGB CONC 33.3 g/dL (33.0-35.0); MEAN CORPUSCULAR VOLUME 78.7 fL (80.0-100.0); MEAN PLATELET VOLUME 9.4 fL (7.4-11.0); MONOCYTES # (AUTO) 0.7 x10^3/uL (0.3-0.8); MONOCYTES % (AUTO) 7.7 % (0.0-13.0); NEUTROPHILS # (AUTO) 5.9 x10^3/uL (2.2-4.8); NEUTROPHILS % (AUTO) 68.9 % (42.0-75.0); PLATELET COUNT 209 X10^3/uL (150.0-450.0); RED BLOOD COUNT 4.76 X10^6/uL (3.5-5.4); RED CELL DISTRIBUTION WIDTH 18.2 % (11.6-16.5); WHITE BLOOD COUNT 8.6 X10^3/uL (3.6-10.0)
[2017-02-13] MEDS ORDERED: PROTONIX TAB 40 MG PO SCH (09:00)
[2017-02-13] MEDS: HYDROCHLOROTHIAZIDE 12.5 MG CAP PO SCH (09:28)
[2017-02-13] MEDS: COZAAR PO SCH (09:28)
[2017-02-13] MEDS: NORVASC TAB 5 MG PO SCH (09:28)
[2017-02-13] MEDS: ASPIRIN PO SCH (09:28)
[2017-02-13] MEDS: ALDACTONE TAB 25 MG PO SCH (09:28)
[2017-02-13 13:02] VITALS: BP 152/73
== END 2017-02-13 12:10 | disposition home health service (06) | DRG 392 ==
LOC: MED/SURG 09:24 → OBSVTOIN 02-10 11:00
PROVIDERS: ADMIT Internal Medicine; ATTEND Internal Medicine
DX: R10.84 Generalized abdominal pain (principal); R53.1 Weakness; R62.7 Adult failure to thrive; I10 Essential (primary) hypertension; R26.89 Other abnormalities of gait and mobility; Z89.512 Acquired absence of left leg below knee; E03.8 Other specified hypothyroidism
CPT/HCPCS: 36415; 70450; 71010; 73030; 74176; 80053; 81001; 82150; 83690; 83735; 84132; 84439; 84443; 85025; 87040; 87086; 94760; A4222; G0378